=== PATIENT | female | born 1985 | race African-American/Black ===

== ENCOUNTER 2016-06-02 11:56 | Emergency (ER) | payer SELFPAY ==
[~2016-06-02] VITALS: Ht 167.6 cm; Wt 90.7 kg
[2016-06-02 12:20] VITALS: BP 149/99
[2016-06-02 12:29] VITALS: BP 149/99
--- NOTE | 2016-06-02 12:30 | Emergency Room Report ---
History of Present Illness General Chief Complaint: Skin Rash/Abscess Source: Patient Present Illness HPI Patient complains of abscess on right buttock for 4 days. Associated symptoms includes Mass on right inner buttock that is red, swollen, tender to touch. Pain is worse with palpation and with walking and better with Tylenol. Patient has a history of previous abscess before he denies any local trauma or wound infection. Denies any current n/v/f/c/d, abd pain, back pain, or rashes. Allergies: Coded Allergies: No Known Allergies (Unverified , 06/02/16) Patient History Past Medical History: see triage record Past Surgical History: none Pertinent Family History: none Now: No Reviewed Nursing Documentation: PMH: Agreed, PSxH: Agreed Nursing Documentation-PMH Past Medical History: No Stated History Review of Systems All Other Systems: negative except mentioned in HPI Physical Exam Vital Signs Date Time Temp Pulse Resp B/P Pulse Ox O2 Delivery O2 Flow Rate FiO2 06/02/16 12:16 98.1 80 16 149/99 99 Room Air Sp02 EP Interpretation: reviewed, normal - stable General Appearance: no apparent distress, alert, GCS 15, non-toxic Head: normocephalic, atraumatic ENT: hearing grossly normal, normal voice Neck: normal inspection Respiratory: chest non-tender, lungs clear, normal breath sounds, speaking full sentences Cardiovascular #1: regular rate, rhythm, no edema Gastrointestinal: non tender, soft Rectal: deferred Neurologic: alert, oriented x3, responsive, sensory intact, speech normal Psychiatric: judgement/insight normal, memory normal, mood/affect normal, no suicidal/homicidal ideation Skin: normal color, no rash, warm/dry, well hydrated, other - 4cm erythematous indurated mass w/o fluctulence present right inner buttock. Area is warm to touch w/o drainage. Lymphatic: no adenopathy Medical Decision Making PA Attestation Dr. Alvarado is my supervising physician with whom patient management has been discussed with. Diagnostic Impression: Primary Impression: Abscess ER Course Pt. presents to the ED c/o possible abscess Ddx considered but are not limited to cellulitis, abscess, insect bite, rash Vital signs: are WNL, pt. is afebrile H&PE are most consistent with abscess, not ready for drainage ORDERS: none required at this time, the diagnosis is clinical ED INTERVENTIONS: none required at this time. DISCHARGE: At this time pt. is stable for d/c to home. Will provide printed patient care instructions, and any necessary prescriptions. Care plan and follow up instructions have been discussed with the patient prior to discharge. Last Vital Signs Date Time Temp Pulse Resp B/P Pulse Ox O2 Delivery O2 Flow Rate FiO2 06/02/16 12:29 98.1 16 149/99 99 Room Air 06/02/16 12:16 80 Disposition: HOME, SELF-CARE Condition: Stable Scripts Cephalexin* (KEFLEX*) 500 Mg Capsule 500 MG ORAL EVERY 12 HOURS, #20 CAP 0 Refills Prov: OBINNA ALMAZAN.A. 06/02/16 Clindamycin Hcl (CLINDAMYCIN HCL) 300 Mg Capsule 300 MG ORAL TID for 10 Days, #30 CAP Prov: OBINNA [email or web address].AStephanie 06/02/16 Patient Instructions: Abscess Additional Instructions: Take medication as directed. Patient instructed to take ibuprofen 600mg as needed for pain. Patient to return for wound check in 2-3 days either here, urgent care or with PCP. Advised patient to keep site of infection elevated above the level of their heart 3 or 4 times a day, for 30 minutes each time to help reduce swelling. Patient is to keep the infected area clean and dry. They can take a shower or bath, but be sure to pat the area dry with a towel afterward. Patient instructed to not put any antibiotic ointments or creams on the area. Patient should come back sooner if their symptoms do not get better within 3 days of starting treatment or if the red area gets bigger, more swollen , or more painful. OBINNA ALMAZAN Jun 02, 2016 12:30
[2016-06-02] MEDS ORDERED: CEPHALEXIN500 MG ORAL (12:33)
[2016-06-02] MEDS ORDERED: CLINDAMYCIN HC300 MG ORAL (12:33)
== END 2016-06-02 13:00 | disposition home or self-care (01) ==
LOC: EMR 12:35
DX: L02.31 Cutaneous abscess of buttock (principal)

== ENCOUNTER 2018-01-22 19:48 | Emergency (ER) | payer MEDICAID ==
[~2018-01-22] VITALS: Ht 160 cm; Wt 93.0 kg
[~2018-01-22 19:48] MED LIST: CEPHALEXIN500 MG ORAL; CLINDAMYCIN HC300 MG ORAL
[2018-01-22 20:07] VITALS: BP 160/105
--- NOTE | 2018-01-22 20:33 | Emergency Room Report ---
History of Present Illness General Chief Complaint: Pain Source: Patient Present Illness HPI This patient states that a couple months ago she had been holding a bunch of clothing on hangers on on her right hand. She states she noted some pain in her hand at that time. There was no trauma. She states the symptoms went away with time. She states that today she noticed a bump at the base of her right ring finger. She states the bump is movable. There is no pain. She denies recurrent trauma. She has no other complaints. Allergies: Coded Allergies: No Known Allergies (Unverified , 01/22/18) Patient History Past Medical History: none, see triage record Social History: Denies: smoking, alcohol use, drug use Last Menstrual Period: 01/11/2018 Now: No Reviewed Nursing Documentation: PMH: Agreed; PSxH: Agreed Nursing Documentation-PMH Past Medical History: No Stated History Review of Systems All Other Systems: negative except mentioned in HPI Physical Exam Vital Signs Date Time Temp Pulse Resp B/P (MAP) Pulse Ox O2 Delivery O2 Flow Rate FiO2 01/22/18 20:00 98.2 78 16 160/105 98 Room Air Sp02 EP Interpretation: reviewed, normal General Appearance: no apparent distress, alert, GCS 15, non-toxic Head: normocephalic, atraumatic Eyes: bilateral eye normal inspection ENT: hearing grossly normal, normal pharynx, no angioedema, normal voice Neck: full range of motion, supple/symm/no masses Respiratory: no respiratory distress, no retraction, no accessory muscle use, speaking full sentences Rectal: deferred Musculoskeletal: back normal, gait/station normal, normal range of motion, non- tender, other - Pea-sized fluid filled nodule that is movable at the base of the R. ring finger. Neurologic: alert, oriented x3, responsive, motor strength/tone normal, sensory intact, speech normal Psychiatric: judgement/insight normal, memory normal, mood/affect normal, no suicidal/homicidal ideation Skin: normal color, no rash, warm/dry, well hydrated Medical Decision Making Diagnostic Impression: Primary Impression: Ganglion cyst of flexor tendon sheath of finger ER Course This patient has findings on physical exam consistent with a ganglion cyst of the flexor tendon sheath of the right ring finger. There are no concerning findings on exam that would make me concerned for fracture or infection. The patient was reassured and instructed to follow-up with a hand surgeon if she wants the cyst removed. The patient's given return precautions and follow-up instructions. Last Vital Signs Date Time Temp Pulse Resp B/P (MAP) Pulse Ox O2 Delivery O2 Flow Rate FiO2 01/22/18 20:07 98.2 84 16 160/105 98 Room Air Status: improved Disposition: HOME, SELF-CARE Condition: Improved Brittany Auguste DO Jan 22, 2018 20:33
[2018-01-22 20:42] VITALS: BP 152/93
== END 2018-01-22 20:41 | disposition home or self-care (01) ==
LOC: EMR 20:00
DX: M67.441 Ganglion, right hand (principal); F17.200 Nicotine dependence, unspecified, uncomplicated
CPT/HCPCS: 99282